=== PATIENT | male | born 1970 | race Caucasian/White ===

== ENCOUNTER 2017-09-03 11:15 | Emergency (ER) | payer SELFPAY ==
[~2017-09-03] VITALS: Ht 180.3 cm; Wt 127.0 kg
[~2017-09-03 11:15] MED LIST: IBUP800T23 PO; LISI-357 PO; METHO500 PO; Z.0.NO CURRENT MEDS
[2017-09-03 11:18] VITALS: BP 165/79; PULSE 89; RESP 18; TEMP 98.2; O2SAT 94
[2017-09-03] MEDS ORDERED: IBUPROFEN 600 MG TAB PO ONE (15:15)
[2017-09-03] MEDS ORDERED: PENI500T PO (15:16)
--- NOTE | 2017-09-03 15:17 | PD ---
HPI Chief Complaint: Oral / Dental Pain or Problem Time Seen by Provider: 14:50 Travel History International Travel<30 days: No Contact w/Intl Traveler<30days: No Traveled to known affect area: No History of Present Illness HPI Patient is a 47-year-old male who comes in complaining of tooth pain. He says the tooth was hurting him last night so he pulled it out with pliers, but did not get the root. He says that he needs to have the ring removed. He is asking for antibiotics. And pain medicine. He denies any difficulty swallowing or breathing. He denies fever chills. Severity is mild. PFSH Past Medical History Hypertension: Yes Schizophrenia: Yes Past Surgical History Joint Replacement: Yes Social History Tobacco Use: Yes Allergies-Medications (Allergen,Severity, Reaction): Coded Allergies: No Known Allergies (Unverified Adverse Reaction, Unknown, 09/03/17) Reported Meds & Prescriptions Reported Meds & Active Scripts Active Penicillin V Potassium 500 Mg Tab 500 Mg PO Q6H 7 Days Lisinopril 5 mg (Lisinopril) 5 Mg Tab 5 Mg PO DAILY Ibuprofen 800 Mg Tab 800 Mg PO TID Robaxin 500 Mg Tab (Methocarbamol) 500 Mg Tab 500 Mg PO QID Reported No Current Meds (Miscellaneous Medication) Misc Review of Systems General / Constitutional: No: Fever, Chills HENT: Positive: Dental Difficulties, No: Headaches, Vertigo Respiratory: No: Cough, Shortness of Breath Gastrointestinal: No: Nausea, Vomiting Musculoskeletal: No: Myalgias Skin: No Rash, No Change in Pigmentation Neurologic: No: Weakness, Dizziness Physical Exam Narrative GENERAL: Awake and alert, in no acute distress. SKIN: Focused skin assessment warm/dry. No wounds or signs of infection. HEAD: Atraumatic. Normocephalic. EYES: Pupils equal and round. No scleral icterus. ENT: Mucous membranes pink and moist. Broken tooth in the right lower molar. No abscess. CARDIOVASCULAR: Regular rate and rhythm. No murmur appreciated. RESPIRATORY: No accessory muscle use. Clear to auscultation. Breath sounds equal bilaterally. MUSCULOSKELETAL: No obvious deformities. No clubbing. No cyanosis. No edema. NEUROLOGICAL: Awake and alert. No obvious cranial nerve deficits. Motor grossly within normal limits. Normal speech. Data Data Last Documented VS Vital Signs Date Time Temp Pulse Resp B/P (MAP) Pulse Ox O2 Delivery O2 Flow Rate FiO2 09/03/17 11:18 98.2 89 18 165/79 (107) 94 Orders Orders Ibuprofen (Motrin) (09/03/17 15:15) Ed Discharge Order (09/03/17 15:17) MDM Medical Decision Making Medical Screen Exam Complete: Yes Emergency Medical Condition: Yes Medical Record Reviewed: Yes Differential Diagnosis Dental infection versus dental abscess versus dental trauma Narrative Course Patient is a 47-year-old male comes in due to a broken tooth. Exam shows no evidence of abscess. Patient given an ibuprofen. Given a prescription for penicillin and told it is free at [employer]. Patient is constantly discussing his foot, which she had operated on in 1995. In looking through the records, he did this when he saw Dr. Julio as well. He is advised he needs to see podiatry regarding this chronic problem. Patient advised to [facility]. Advised to return as needed for any worsening symptoms. Diagnosis Primary Impression: Pain, dental Referrals: [facility] call for appointment Patient Instructions: Acute Dental Trauma (ED), General Instructions Additional Instructions: Take all of the antibiotic. Take Tylenol or ibuprofen as needed for pain. Follow-up with the dentist. Return to the ED as needed for any worsening symptoms. Scripts Penicillin V Potassium (Penicillin V Potassium) 500 Mg Tab 500 MG PO Q6H for Infection for 7 Days, #28 TAB 0 Refills Prov: Xin Eddy MD 09/03/17 Disposition: 01 DISCHARGE HOME Condition: Stable Xin Eddy MD Sep 03, 2017 15:17
== END 2017-09-03 15:37 | disposition home or self-care (01) ==
LOC: NEPD 11:15
DX: K08.89 Other specified disorders of teeth and supporting structures (principal); I10 Essential (primary) hypertension; F20.9 Schizophrenia, unspecified; Z72.0 Tobacco use
CPT/HCPCS: 99283